=== PATIENT | male | born 1980 | race Caucasian/White ===

== ENCOUNTER 2016-05-06 07:40 | Outpatient (CLI) | payer BC ==
[~2016-05-06 07:40] MED LIST: NORCO1 TA1 PO
--- NOTE | 2016-05-06 07:58 | DIAGNOSTIC IMAGING REPORT ---
PROCEDURE: XR CHEST 2 VIEW INDICATION: PNEUMONIA TECHNIQUE: PA and lateral view. COMPARISON: None. FINDINGS: Mild right upper lobe and bibasilar plate-like atelectasis. Cardiovascular structures are normal. Bony thorax is unremarkable. IMPRESSION: 1. Bilateral plate-like atelectasis.
== END 2016-05-06 23:00 ==
LOC: XR SRH 07:40
DX: J18.9 Pneumonia, unspecified organism (principal); R91.8 Other nonspecific abnormal finding of lung field